=== PATIENT | male | born 1950 | race Caucasian/White ===

== ENCOUNTER 2017-01-06 07:38 | Inpatient (IN) | payer MEDICARE ==
[2017-01-04 08:56] VITALS: BP 154/81
[2017-01-04 09:28] LABS: HEMATOCRIT 48.4 % (39.2-51.8); HEMOGLOBIN 16.5 g/dL (13.7-18.0); WHITE BLOOD COUNT 7.3 x10^3/uL (3.4-10)
[2017-01-04 09:39] LABS: ASPARTATE AMINO TRANSFERASE 12 U/L (15-37); BLOOD UREA NITROGEN 14 mg/dL (7-18)
[~2017-01-06] VITALS: Ht 182.9 cm; Wt 95.4 kg
[~2017-01-06 07:38] MED LIST: ASPI-496 PO; LISI40TA PO; MULT-658 PO; PRAV40TA2 PO; [UNRECOGNIZED DRUG - CODE] SL; nitroglycerin SL
[2017-01-06] MEDS ORDERED: NITROGLYCERIN 5 MG/ML, 10ML ONE (09:00)
[2017-01-06] MEDS ORDERED: MIDAZOLAM 1 MG/ML, 5ML ONE (09:00)
[2017-01-06] MEDS ORDERED: BIVALIRUDIN 250 MG ONE (09:00)
[2017-01-06] MEDS ORDERED: FENTANYL PF 100 MCG/2ML ONE ×2 (09:00→09:43)
[2017-01-06] MEDS ORDERED: VERAPAMIL 2.5 MG/ML, 2ML ONE (09:00)
[2017-01-06] MEDS ORDERED: LIDOCAINE 2%, 20ML ONE (09:01)
[2017-01-06] MEDS ORDERED: HEPARIN 1,000 UNITS/ML, 10ML ONE (09:01)
[2017-01-06] MEDS ORDERED: DIPHENHYDRAMINE 50 MG/ML, 1ML ONE (09:43)
[2017-01-06] MEDS ORDERED: PRASUGREL 10 MG TABLET ONE (09:43)
[2017-01-06] MEDS ORDERED: SODIUM CHLORIDE 0.9% 1,000 ML IV SCH (10:04)
[2017-01-06] MEDS ORDERED: BIVALIRUDIN 250 MG in DEXTROSE 5% 50 ML IV SCH (10:04)
[2017-01-06] MEDS ORDERED: ONDANSETRON 2MG/ML, 2ML IVPush PRN (10:30)
[2017-01-06] MEDS ORDERED: NITROGLYCERIN 0.4 MG BOTTLE (25 TABS) SL PRN (10:30)
[2017-01-06] MEDS ORDERED: ZOLPIDEM 5MG TABLET PO PRN (10:30)
[2017-01-06] MEDS ORDERED: ACETAMINOPHEN 325 MG TABLET PO PRN (10:30)
[2017-01-06 11:03] VITALS: BP 117/69
[2017-01-06] MEDS: OXYcodone/APAP 5/325MG TABLET PO PRN ×2 (11:34→20:26)
[2017-01-06 14:00] VITALS: BP 112/76
[2017-01-06 17:22] LABS: IS PT STATUS REG ER OR PRE ER? NO
[2017-01-06 20:00] VITALS: BP 148/81
[2017-01-06] MEDS ORDERED: PRAVASTATIN 40 MG TABLET PO SCH (21:00)
[2017-01-07 01:52] VITALS: BP 109/66
[2017-01-07] MEDS: OXYcodone/APAP 5/325MG TABLET PO PRN (04:32)
[2017-01-07 05:55] LABS: HEMATOCRIT 45.2 % (39.2-51.8); HEMOGLOBIN 15.5 g/dL (13.7-18.0)
[2017-01-07 06:06] LABS: BLOOD UREA NITROGEN 15 mg/dL (7-18)
[2017-01-07 08:01] VITALS: BP 136/78
[2017-01-07] MEDS ORDERED: MULTIVITAMIN 1 TABLET PO SCH (09:00)
[2017-01-07] MEDS ORDERED: PRASUGREL 10 MG TABLET PO SCH (09:00)
[2017-01-07] MEDS ORDERED: ASPIRIN 81 MG TABLET EC PO SCH (09:00)
[2017-01-07] MEDS ORDERED: LISINOPRIL 20 MG TABLET PO SCH (09:00)
[2017-01-07] MEDS ORDERED: PRAS10TA4 PO ×2 (10:36→11:34)
== END 2017-01-07 11:40 | disposition home or self-care (01) | DRG 247 ==
LOC: CACL 07:38 → ORIP 10:04 → 5SO 10:23 → DCLOUNGE 01-07 11:10
PROVIDERS: ADMIT Internal Medicine Cardiovascular Disease; ATTEND Internal Medicine Cardiovascular Disease
PROC: 027135Z Dilation of Coronary Artery, Two Arteries with Two Drug-eluting Intraluminal Devices, Percutaneous Approach (ICD-10-PCS; principal; 2017-01-06)
PROC: 4A023N7 Measurement of Cardiac Sampling and Pressure, Left Heart, Percutaneous Approach (ICD-10-PCS; 2017-01-06)
PROC: B2111ZZ Fluoroscopy of Multiple Coronary Arteries using Low Osmolar Contrast (ICD-10-PCS; 2017-01-06)
PROC: B2151ZZ Fluoroscopy of Left Heart using Low Osmolar Contrast (ICD-10-PCS; 2017-01-06)
DX: I25.110 Atherosclerotic heart disease of native coronary artery with unstable angina pectoris (principal); B19.20 Unspecified viral hepatitis C without hepatic coma; E78.5 Hyperlipidemia, unspecified; Z82.49 Family history of ischemic heart disease and other diseases of the circulatory system
CPT/HCPCS: 36415; 80048; 80053; 80061; 82040; 84484; 85014; 85018; 85025; 93005; 93458; 93571; 99156; 99157; C1894; C9600; J0583; J1644; J2250; J3010; J3490; C1769; C1874; C1887; J1200; Q9967